=== PATIENT | female | born 1960 | race Caucasian/White ===

== ENCOUNTER → 2020-11-21 18:09 | Outpatient (CLI) | payer MEDICAID, SELFPAY ==
[2020-11-21 18:28] LABS: Basophils % 0.7 % (0.1-2.0); Eosinophils # 0.1 K/mm3 (0.0-0.4); Eosinophils % 1.3 % (0.1-12.0); Hematocrit 40.6 % (37.0-47.0); Hemoglobin 13.2 g/dL (12.2-16.2); Lymphocytes # 1.7 K/mm3 (0.7-4.5); Lymphocytes % 29.4 % (10-50); Mean Corpuscular HGB Conc 32.4 g/dL (31.8-35.4); Mean Corpuscular Hemoglobin 29.9 pg (27.0-31.2); Mean Corpuscular Volume 92.4 fl (81-99); Mean Platelet Volume 8.8 fl (7.4-10.4); Monocytes # 0.6 K/mm3 (0.1-1.0); Neutrophils # 3.3 K/mm3 (1.8-7.8); Neutrophils % 58.6 % (37.0-80.0); Platelet Count 363 K/mm3 (142-424); Red Cell Distribution Width 13.4 % (11.5-17.5); White Blood Count 5.7 K/mm3 (4.8-10.8)
[2020-11-21 19:19] LABS: Chloride 100 mmol/L (98-107); Potassium 4.7 mmoL/L (3.5-5.1); Sodium 138 mmol/L (136-145)
[2020-11-21 19:22] LABS: Alanine Aminotransferase 11 U/L (12-78); Albumin Level 4.6 g/dl (3.5-5.0); Albumin/Globulin Ratio 1.4 (1.1-1.8); Alkaline Phosphatase 102 U/L (38-126); Anion Gap 11.7 mEq/L (5-15); Aspartate Amino Transferase 29 U/L (14-36); Bilirubin,Total 0.4 mg/dl (0.2-1.3); Blood Urea Nitrogen 19 mg/dl (7-17); Carbon Dioxide 31 mmol/L (22.0-30.0); Cholesterol 241 mg/dl (140-200); Estimated Glomerular Filt Rate 57 ml/min (>60); GFR (African American) 69 ML/MIN (>60); Globulin 3.4 g/dL (1.3-3.2); Triglycerides 133 mg/dl (30-150); VLDL Cholesterol 27 mg/dL (0-40)
[2020-11-21 19:23] LABS: Calcium 9.7 mg/dl (8.4-10.2); Glucose 86 mg/dl (74-100)
[2020-11-21 19:34] LABS: Direct LDL Cholesterol 82.97 mg/dL (100-129)
[2020-11-21 19:47] LABS: Chol/HDL Ratio 1.8 (1-3.5); HDL Cholesterol 134 mg/dl (40-60)
[2020-11-21 19:56] LABS: Free T4 (Free Thyroxine) 0.99 ng/dl (0.78-2.19)
[2020-11-21 19:58] LABS: 25-OH Vitamin D, Total 25.5 ng/mL (30-100)
[2020-11-23 06:11] LABS: HIV Screen 4th Generation wRfx Non Reactive (Non Reactive); Hep A Ab, IgM Negative (Negative); Hep A Ab, Total Positive (Negative); Hep B Core Ab, Total Positive (Negative); Hep B Surface Ab, Qual Reactive (.); Hepatitis B Surface Antigen Negative (Negative); Hepatitis C Antibody >11.0 s/co ratio (0.0-0.9)
[2020-11-24 05:10] LABS: ALT (SGPT) P5P 11 IU/L (0-40); Alpha 2-Macroglobulins, Qn 227 mg/dL (110-276); Apolipoprotein A-1 209 mg/dL (116-209); Bilirubin, Total 0.3 mg/dL (0.0-1.2); GGT 12 IU/L (0-60); Haptoglobin 73 mg/dL (33-346); Necroinflammat Activity Grade A0-No activity (.); Necroinflammat Activity Score 0.02 (0.00-0.17)
== END ==
PROVIDERS: Visit Provider Emergency Medicine
DX: F32.A Depression, unspecified (principal); F41.9 Anxiety disorder, unspecified; K21.9 Gastro-esophageal reflux disease without esophagitis; E55.9 Vitamin D deficiency, unspecified; Z11.4 Encounter for screening for human immunodeficiency virus [HIV]; R94.5 Abnormal results of liver function studies
CPT/HCPCS: 80053; 80061; 81596; 82306; 84439; 84443; 85025; 86703; 86704; 86706; 86708; 87340; 87380; 87522; G0432